=== PATIENT | male | born 1960 | race Caucasian/White ===

== ENCOUNTER 2017-03-04 08:47 | Emergency (ER) | payer BC, OTHER ==
[2017-03-04 09:18] VITALS: BP 129/83
--- NOTE | 2017-03-04 10:18 | UC ---
Respiratory Complaint HPI - HPI Summary HPI Summary: 56 yo M with hx seasonal allergies for years, states every year they get bad enough that he gets short of breath and wheezes. States this has been going on for weeks now. Has tried OTC decongestants and allergy meds without relief. Pt denies chest pain. Does have some SOB with exertion since this allergic flare. Upon further questioning pt states he has been having left arm pain that preceded the allergic symptoms for the past two months, and has been getting worse. Has never had chest pain with the arm pain. Only cardiac risk factor is hyperlipidemia. Has never had a stress test. Pt has had the left arm pain evaluated by his PCP and was advised that it was musculoskeletal. - History of Current Complaint Chief Complaint: UCRespiratory Stated Complaint: CHEST CONGESTION Time Seen by Provider: 03/04/17 08:59 Hx Obtained From: Patient Onset/Duration: Gradual Onset, Lasting Weeks, Still Present Timing: Constant Severity Initially: Moderate Severity Currently: Moderate Pain Intensity: 0 Pain Scale Used: 0-10 Numeric Character: Cough: Nonproductive Aggravating Factors: Allergens Alleviating Factors: OTC Meds - some relief Associated Signs And Symptoms: Positive: Dyspnea - with exertion with allergies , Wheezing, Nasal Congestion. Negative: Calf Pain, Calf Swelling Related History: Seasonal Allergies - Risk Factors Pulmonary Embolism Risk Factors: Negative Cardiac Risk Factors: Elevated Lipids Pseudomonas Risk Factors: Negative Tuberculosis Risk Factors: Negative - Allergies/Home Medications Allergies/Adverse Reactions: Allergies Allergy/AdvReac Type Severity Reaction Status Date / Time seasonal Allergy Congestion Uncoded 03/04/17 09:18 Home Medications: Home Medications Antihistamine Tab 1 tab PO DAILY PRN 03/04/17 [History Confirmed 03/04/17] Mucinex With Decongestant 1 tab PO TID PRN 03/04/17 [History Confirmed 03/04/17 ] PMH/Surg Hx/FS Hx/Imm Hx Endocrine History: Dyslipidemia - Surgical History Surgical History: Yes Surgery Procedure, Year, and Place: 1986 hernia left inguinal - Family History Known Family History: Positive: Other - dementia in father; both parents ;brother smoked, [place] 50y - Social History Alcohol Use: None Substance Use Type: None Smoking Status (MU): Never Smoked Tobacco Have You Smoked in the Last Year: No - Immunization History Most Recent Influenza Vaccination: none Review of Systems Constitutional: Negative Skin: Negative Eyes: Negative ENT: Nasal Discharge, Sinus Congestion, Sinus Pain/Tenderness Respiratory: Shortness Of Breath Cardiovascular: Negative Gastrointestinal: Negative Genitourinary: Negative Motor: Negative Neurovascular: Negative Musculoskeletal: Other: - left arm pain intermittent Neurological: Negative Psychological: Negative All Other Systems Reviewed And Are Negative: Yes Physical Exam Triage Information Reviewed: Yes Appearance: No Pain Distress, Ill-Appearing - mild, Obese Vital Signs: Initial Vital Signs Temp 99 F 03/04/17 08:50 Pulse 87 03/04/17 08:50 Resp 24 03/04/17 08:50 BP 129/83 03/04/17 08:50 Pulse Ox 96 03/04/17 08:50 Vital Signs Reviewed: Yes Eyes: Positive: Conjunctiva Clear ENT: Positive: Hearing grossly normal, Pharynx normal, Nasal congestion, TMs normal, Muffled/hoarse voice, Other: - sinus tenderness. 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 Pt has cough and wheezing due to allergies and bronchospasm. He has no chest pain with this, and arm pain preceded this and does not seem cardiac. But pt is advised to see his practitioner again to re-evaluate. Advised his EKG is not completely normal, and if he develops chest pain he must go to the ED. Pt is improved after neb and prednisone in UC. - Differential Dx/Diagnosis Differential Diagnosis/HQI/PQRI: Asthma, Bronchitis, Lower Resp Infection, Sinusitis, Other - ACS, angina Provider Diagnoses: acute allergic asthma Discharge - Discharge Plan Condition: Stable Disposition: HOME Prescriptions: Albuterol HFA INHALER* [Ventolin HFA Inhaler*] 2 puff INH Q4H PRN #1 mdi PRN Reason: Sob/Wheezing LevoCETirizine TAB (NF) [Xyzal TAB (NF)] 5 mg PO DAILY #30 tab predniSONE TAB* [Deltasone TAB*] 40 mg PO DAILY #10 tab Patient Education Materials: Allergies (ED) Referrals: Fareed Van [Primary Care Provider] - As Soon As Possible
[2017-03-04] MEDS ORDERED: Albuterol 2.5 MG/3 ML NEB.SOL* (0.083%) INH ONE (10:30)
[2017-03-04] MEDS ORDERED: predniSONE TAB* 20 MG PO ONE (10:31)
== END 2017-03-04 11:14 | disposition home or self-care (01) ==
LOC: UCCORT 08:47
DX: J45.901 Unspecified asthma with (acute) exacerbation (principal); E78.5 Hyperlipidemia, unspecified; E66.9 Obesity, unspecified
CPT/HCPCS: 93005; 99212; G0463; J7512

== ENCOUNTER 2017-09-16 08:30 | Emergency (ER) | payer OTHER ==
[2017-09-16 08:46] VITALS: BP 107/73
--- NOTE | 2017-09-16 09:05 | UC ---
Respiratory Complaint HPI - HPI Summary HPI Summary: Pt presents with persistent cough and congestion. Pt states has been given symptomatic treatment with short term relief. States has been cyclical since Spring. Pt deneis fevers, chills. Pt has taken Albuterol MDI intermittently with relief. Pt states say PCP 1 month ago. given albuterol and prednisone with temp relief. 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 PT also states sx started in spring when he got a new dog. no SOB, no cp, no edema Pt's medications reviewed this visit - History of Current Complaint Chief Complaint: UCGeneralIllness Stated Complaint: CONGESTION Time Seen by Provider: 09/16/17 08:49 Hx Obtained From: Patient Onset/Duration: Gradual Onset Timing: Intermittent Episodes Severity Initially: Mild Severity Currently: Moderate Character: Cough: Productive Aggravating Factors: Allergens Associated Signs And Symptoms: Positive: Wheezing, Nasal Congestion - Allergies/Home Medications Allergies/Adverse Reactions: Allergies Allergy/AdvReac Type Severity Reaction Status Date / Time seasonal Allergy Congestion Uncoded 09/16/17 08:41 Home Medications: Home Medications Guaifenesin 800 mg PO QAM 09/16/17 [History Confirmed 09/16/17] Rosuvastatin Calcium [Crestor] 20 mg PO DAILY 09/16/17 [History Confirmed ] Vitamin THERAPEUTIC TAB* [Theragran TAB*] 1 tab PO DAILY 09/16/17 [History Confirmed 09/16/17] PMH/Surg Hx/FS Hx/Imm Hx Previously Healthy: Yes - Surgical History Surgical History: Yes Surgery Procedure, Year, and Place: Left Inguinal Herniorrhapy, 1986, [place] - Family History Known Family History: Positive: Unknown, Other - dementia in father; both parents ;brother smoked, [place] 50y - Social History Occupation: Employed Full-time Lives: With Family Alcohol Use: None Substance Use Type: None Smoking Status (MU): Never Smoked Tobacco Have You Smoked in the Last Year: No - Immunization History Most Recent Influenza Vaccination: Not the Season Review of Systems Constitutional: Negative Skin: Negative Eyes: Negative ENT: Negative, Sinus Congestion Respiratory: Cough Cardiovascular: Negative Gastrointestinal: Negative Genitourinary: Negative Motor: Negative Neurovascular: Negative Musculoskeletal: Negative Neurological: Negative Psychological: Negative All Other Systems Reviewed And Are Negative: Yes Physical Exam Triage Information Reviewed: Yes Appearance: Well-Appearing, No Pain Distress, Well-Nourished Vital Signs: Initial Vital Signs Temp 98.1 F 09/16/17 08:38 Pulse 90 09/16/17 08:38 Resp 16 09/16/17 08:38 BP 107/73 09/16/17 08:38 Pulse Ox 96 09/16/17 08:38 Vital Signs Reviewed: Yes Eye Exam: Normal Eyes: Positive: Conjunctiva Clear ENT Exam: Normal ENT: Positive: Hearing grossly normal, Nasal congestion, TM dull, Sinus tenderness, Uvula midline Dental Exam: Normal Neck exam: Normal Neck: Positive: Supple, Nontender, No Lymphadenopathy Respiratory Exam: Normal Respiratory: Positive: Chest non-tender, Lungs clear, Normal breath sounds, No respiratory distress, No accessory muscle use, Other: - intermittent coarse cough + BS throughout Cardiovascular Exam: Normal Cardiovascular: Positive: RRR, No Murmur, Pulses Normal Abdominal Exam: Normal Abdomen Description: Positive: Nontender, No Organomegaly, Soft Bowel Sounds: Positive: Present Musculoskeletal Exam: Normal Musculoskeletal: Positive: Strength Intact Neurological Exam: Normal Neurological: Positive: Alert Psychological Exam: Normal Skin Exam: Normal UC Diagnostic Evaluation - Laboratory O2 Sat by Pulse Oximetry: 96 - Radiology Xray Interpretation: No Acute Changes Radiology Interpretation Completed By: Radiologist Respiratory Course/Dx - Differential Dx/Diagnosis Provider Diagnoses: acute bronchitis Discharge - Discharge Plan Condition: Stable Disposition: HOME Prescriptions: Azithromycin TAB* [Zithromax TAB (Z-JOHN) 250 mg #6 tabs] 2 tab PO .TODAY, THEN 1 DAILY #1 john predniSONE TAB* [Deltasone TAB*] 40 mg PO DAILY #10 tab Patient Education Materials: Acute Bronchitis (ED) Referrals: Rufus Pandey MD [Medical Doctor] - Fareed Van [Primary Care Provider] - Mya Blanco MD [Medical Doctor] - Additional Instructions: - Take antibiotics as prescribed until gone - Use albuterol, 2 puffs every 4 hours today and tomorrow -then as needed - It is recommended you take allegery medication daily (Claritin, poly, Zyrtec) - after you have been on antibiotics for 2 days, change your pillow case and your toothbrush - contact your doctor to schedule a follow-up appointment. -You have also been given a referral to Dr. Golden Pandey - he is an care program resident that may suggest some additional testing or treatment. You have also been given the contact information for Dr. Blanco, bleaching supervisor
--- NOTE | 2017-09-16 09:33 | RAD ---
INDICATION: Persistent cough and congestion. Shortness of breath. COMPARISON: No relevant prior exams available on the [facility] [place] PACS for comparison. TECHNIQUE: Dual energy PA and routine lateral views of the chest were obtained. REPORT: Elevated lung volumes. No focal pulmonary lesion, compelling alveolar consolidation, pleural effusion, pneumothorax. The heart, pulmonary vasculature, and mediastinal contours are unremarkable. RIGHT epicardial fat pad noted. IMPRESSION: Elevated lung volumes suggest obstructive lung disease. No acute cardiopulmonary process evident.
== END 2017-09-16 10:00 | disposition home or self-care (01) ==
LOC: UCCORT 08:30
DX: J20.9 Acute bronchitis, unspecified (principal)
CPT/HCPCS: 71020; 99212; G0463